=== PATIENT | female | born 2000 | race African-American/Black ===

== ENCOUNTER 2020-06-24 14:45 | Emergency (ER) | payer SELFPAY ==
[~2020-06-24] VITALS: Ht 165.1 cm; Wt 59.0 kg
[2020-06-24 14:47] VITALS: BP 166/100
--- NOTE | 2020-06-24 14:49 | NUR ---
PT TAKEN TO LOBBY TO WAIT FOR AVAILABLE BED.
--- NOTE | 2020-06-24 15:38 | NUR ---
PT W/C ASSISTED TO BED 12.
[2020-06-24] MEDS ORDERED: ONDANSETRON 4 MG/2 ML VIAL IVP ONE ×2 (15:45→18:10)
[2020-06-24] MEDS ORDERED: NACL 0.9% 1,000 ML IV SCH (15:45)
[2020-06-24] MEDS ORDERED: MORPHINE SULFATE 4 MG/ML SYR IVP ONE (15:45)
[2020-06-24 16:09] LABS: BASOPHILS % (AUTO) 0.4 % (0.0-2.0); EOSINOPHILS % (AUTO) 0.1 % (0.0-4.0); HEMATOCRIT 42.2 % (36-48); HEMOGLOBIN 14.1 g/dL (12.0-16.0); LYMPHOCYTES # (AUTO) 0.9 K/uL (2.5-16.5); LYMPHOCYTES % (AUTO) 12.1 % (20.5-51.1); MEAN CORPUSCULAR HEMOGLOBIN 30 pg (27-31); MEAN CORPUSCULAR HGB CONC 34 g/dL (33-37); MEAN CORPUSCULAR VOLUME 88.2 fL (80-94); MONOCYTES # (AUTO) 0.2 K/uL (0.8-1.0); MONOCYTES % (AUTO) 2.8 % (1.7-9.3); NEUTROPHILS # (AUTO) 5.9 K/uL (1.8-7.7); NEUTROPHILS % (AUTO) 84.6 % (42.2-75.2); PLATELET COUNT (AUTO) 291 K/uL (140-450); RED BLOOD CELL COUNT(AUTO) 4.79 MIL/uL (4.20-5.40); RED CELL DISTRIBUTION WIDTH 13.4 % (11.6-13.7)
[2020-06-24 16:28] LABS: ALBUMIN 4.3 g/dL (3.4-5.0); ANION GAP 13.1 (8-16); CARBON DIOXIDE 24.5 mmol/L (21-32); CREATININE 0.8 mg/dL (0.6-1.3); POTASSIUM 3.6 mmol/L (3.5-5.1); TOTAL BILIRUBIN 0.4 mg/dL (0.0-1.0)
--- NOTE | 2020-06-24 16:29 | NUR ---
PT REFUSING IV TREATMENT AT THIS TIME, ASKED ME TO COME BACK IN 10 MINUTES
--- NOTE | 2020-06-24 16:51 | NUR ---
PT TAKEN TO CT VIA [facility]
--- NOTE | 2020-06-24 16:54 | NUR ---
19 Y/O FEMALE BIBA C/O ABD PAIN 01/17, PT WAS PICKED UP FROM [facility] C/O EXCRUTIATING ABDOMINAL PAIN, CRUSHING AND SHARP, ACCOMPANIED BY NAUSEA AND VOMITING. PT DENIES ANY RECREATIONAL DRUG USE. PT UNABLE TO VERBALIZE ANYTHING SHE IS IN TOO MUCH PAIN. VSS. RESP EVEN AND UNLABORED.
--- NOTE | 2020-06-24 17:41 | NUR ---
PT RESTING IN BED AT THIS TIME, STATES PAIN HAS DECREASED SIGNIFICANTLY. PT UNABLE TO PROVIDE URINE SAMPLE
[2020-06-24] MEDS ORDERED: IBUP-2213 PO (17:56)
[2020-06-24] MEDS ORDERED: ONDA8TAB87 PO (17:56)
[2020-06-24] MEDS ORDERED: LOPE-289 PO (17:56)
--- NOTE | 2020-06-24 18:10 | NUR ---
PATIENT CONTINUING TO VOMIT AT BEDSIDE, FLORENTINOD MADE AWARE, ZOFRAN ORDERED AT THIS TIME
--- NOTE | 2020-06-24 19:23 | NUR ---
Received pt from [facility]. Pt resting in bed with eyes closed, breathing even and unlabored, VSS. IV NS infusing per MD order.
[2020-06-24 19:55] VITALS: BP 148/83
--- NOTE | 2020-06-24 19:55 | NUR ---
Patient discharged with v/s stable. Written and verbal after care instructions given and explained. Patient alert, oriented and verbalized understanding of instructions. Ambulatory with steady gait. All questions addressed prior to discharge. ID band removed. Patient advised to follow up with PMD. Rx of ibuprofen, imodium,and zofran given. Patient educated on indication of medication including possible reaction and side effects. Opportunity to ask questions provided and answered. IV removed and pressure applied.
--- NOTE | 2020-06-25 19:34 | NUR ---
LATE ENTRY- 0.9% NS BOLUS DISCONTINUED AT 1800
== END 2020-06-24 19:55 | disposition home or self-care (01) ==
LOC: MED 14:45
DX: R10.30 Lower abdominal pain, unspecified (principal); R11.2 Nausea with vomiting, unspecified; R19.7 Diarrhea, unspecified
CPT/HCPCS: 36415; 74176; 80053; 83690; 84703; 85025; 96361; 96374; 96375; 96376; 99284; J2270; J2405; J7030